=== PATIENT | female | born 1980 | race Caucasian/White ===

== ENCOUNTER → 2016-10-01 | Outpatient (REF) | payer OTHER ==
[~2016-10-01] MED LIST: SOMA350T PO; SUBO8TA PO; XANA1TAB2 PO
== END ==
LOC: M SFHCWAGY 15:17
PROVIDERS: ATTEND Nurse Practitioner Family
DX: Z12.4 Encounter for screening for malignant neoplasm of cervix (principal)

== ENCOUNTER → 2017-01-09 | Outpatient (REF) | payer OTHER | LOC: M SFHCWAGY 16:55 | PROVIDERS: ATTEND Nurse Practitioner Family | DX: Z11.3 Encounter for screening for infections with a predominantly sexual mode of transmission (principal) ==

== ENCOUNTER 2017-01-27 23:30 | Emergency (ER) | payer OTHER ==
[~2017-01-27] VITALS: Ht 165.1 cm; Wt 79.0 kg
[2017-01-28 00:30] LABS: BASO % 0.6 % (0.0-1.0); EOS # 0.2 K/mm3 (0.0-0.50); EOS % 3.9 % (0.0-3.0); LARGE UNSTAINED CELL # 0.1 K/mm3 (0.0-0.4); LARGE UNSTAINED CELL % 1.3 % (0.0-4.0); LYMPH # 2.3 K/mm3 (1.5-4.5); LYMPH % 39.5 % (24.0-44.0); MEAN CORPUSCULAR HEMOGLOBIN 29.7 pg (27.0-33.0); MEAN CORPUSCULAR HGB CONC 33.9 g/dl (32.0-36.5); MEAN CORPUSCULAR VOLUME 87.6 fl (80.0-96.0); MONO # 0.3 K/mm3 (0.0-0.8); MONO % 5.8 % (0.0-5.0); NEUTROPHILS # 2.8 K/mm3 (1.8-7.7); NEUTROPHILS % 48.7 % (36.0-66.0); PLATELET COUNT, AUTOMATED 261 k/mm3 (150-450); RED CELL DISTRIBUTION WIDTH 12.9 % (11.5-14.5); WHITE BLOOD COUNT 5.7 K/mm3 (4.0-10.0)
[2017-01-28 00:39] LABS: ALBUMIN 3.2 GM/DL (3.2-5.2); ALBUMIN/GLOBULIN RATIO 0.97 (1.00-1.93); ALKALINE PHOSPHATASE 77 U/L (45-117); ALT/SGPT 34 U/L (12-78); ANION GAP 4 MEQ/L (8-16); AST/SGOT 20 U/L (15-37); BILIRUBIN,DIRECT < 0.1 MG/DL (0.0-0.2); BILIRUBIN,TOTAL 0.3 MG/DL (0.2-1.0); BLOOD UREA NITROGEN 8 MG/DL (7-18); CALCIUM LEVEL 8.8 MG/DL (8.5-10.1); CARBON DIOXIDE LEVEL 29 MEQ/L (21-32); CHLORIDE LEVEL 108 MEQ/L (98-107); CREATININE FOR GFR 0.59 MG/DL (0.55-1.02); GLOMERULAR FILTRATION RATE > 60.0 (>60); GLUCOSE, FASTING 126 MG/DL (70-105); POTASSIUM SERUM 3.4 MEQ/L (3.5-5.1); SODIUM LEVEL 141 MEQ/L (136-145); TOTAL PROTEIN 6.5 GM/DL (6.4-8.2)
[2017-01-28 02:25] LABS: METHADONE URINE NEGATIVE (NEGATIVE)
[2017-01-28] MEDS ORDERED: PARO30TA70 PO (03:13)
[2017-01-28] MEDS ORDERED: GABA-282 PO (03:13)
[2017-01-28] MEDS ORDERED: ADDE30CA PO (03:13)
[2017-01-28] MEDS ORDERED: [UNRECOGNIZED DRUG - CODE] (03:13)
[2017-01-28 06:15] VITALS: BP 129/86
--- NOTE | 2017-01-28 16:26 | ECGEPIP ---
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
== END 2017-01-28 06:33 | disposition home or self-care (01) ==
LOC: EDBD 23:30 → M ED 23:30
DX: T39.8X2A Poisoning by other nonopioid analgesics and antipyretics, not elsewhere classified, intentional self-harm, initial encounter (principal); T43.622A Poisoning by amphetamines, intentional self-harm, initial encounter; Y92.9 Unspecified place or not applicable; Y93.9 Activity, unspecified; F31.9 Bipolar disorder, unspecified; F90.9 Attention-deficit hyperactivity disorder, unspecified type; F17.200 Nicotine dependence, unspecified, uncomplicated; Z79.899 Other long term (current) drug therapy; Z88.0 Allergy status to penicillin

== ENCOUNTER → 2017-07-22 | Outpatient (CLI) | payer OTHER ==
[~2017-07-22] MED LIST changes: +ADDE30CA3 PO; +BUSP10TA; +BUSP10TA PO; +DULO-34 PO; +GABA-282 PO; +MELO15TA4 PO; +METF-415 PO; +PARO30TA3 PO; +PROM50TA4 PO; +SUBO8MIS; +[UNRECOGNIZED DRUG - CODE]
--- NOTE | 2017-07-22 18:19 | ECGEPIP ---
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 Otherwise normal tracing for age Faster rate, but otherwise unchanged from 01/27/17 Electronically Signed On 07-22-2017 18:19:10 EST by George Francis
[2017-07-22 18:46] LABS: MEAN CORPUSCULAR HEMOGLOBIN 30.3 pg (27.0-33.0); MEAN CORPUSCULAR HGB CONC 32.9 g/dl (32.0-36.5); MEAN CORPUSCULAR VOLUME 92.1 fl (80.0-96.0); PLATELET COUNT, AUTOMATED 326 10^3/uL (150-450); WHITE BLOOD COUNT 8.2 10^3/uL (4.0-10.0)
[2017-07-22 19:06] LABS: ALBUMIN 3.6 GM/DL (3.2-5.2); ALBUMIN/GLOBULIN RATIO 0.95 (1.00-1.93); ALKALINE PHOSPHATASE 117 U/L (45-117); ALT/SGPT 59 U/L (12-78); ANION GAP 5 MEQ/L (8-16); AST/SGOT 34 U/L (7-37); BILIRUBIN,TOTAL 0.3 MG/DL (0.2-1.0); BLOOD UREA NITROGEN 10 MG/DL (7-18); CARBON DIOXIDE LEVEL 29 MEQ/L (21-32); CHLORIDE LEVEL 106 MEQ/L (98-107); CREATININE FOR GFR 0.63 MG/DL (0.55-1.02); GLOMERULAR FILTRATION RATE > 60.0 (>60); GLUCOSE, FASTING 93 MG/DL (70-105); POTASSIUM SERUM 3.9 MEQ/L (3.5-5.1); SODIUM LEVEL 140 MEQ/L (136-145); TOTAL PROTEIN 7.4 GM/DL (6.4-8.2)
== END ==
LOC: M IRPRO 15:59 → M LAB 15:59
PROVIDERS: ATTEND Family Medicine
DX: F11.20 Opioid dependence, uncomplicated (principal); R00.0 Tachycardia, unspecified

== ENCOUNTER 2017-07-27 13:58 | Emergency (ER) | payer OTHER ==
[~2017-07-27] VITALS: Ht 165.1 cm; Wt 80.9 kg
[~2017-07-27 13:58] MED LIST changes: -BUSP10TA; -BUSP10TA PO; -DULO-34 PO; -MELO15TA4 PO; -METF-415 PO; -PROM50TA4 PO; -SUBO8MIS
[2017-07-27] MEDS ORDERED: BUSP10TA (14:06)
[2017-07-27] MEDS ORDERED: PROM50TA4 PO (14:06)
[2017-07-27] MEDS ORDERED: SUBO8MIS (14:06)
[2017-07-27] MEDS ORDERED: MELO15TA4 PO (14:06)
[2017-07-27] MEDS ORDERED: DULO-34 PO ×2 (14:06→18:39)
[2017-07-27] MEDS ORDERED: ONDANSETRON 4 MG ORAL DISINTEGRATING TAB (S0181) PO ONE (17:15)
[2017-07-27] MEDS ORDERED: KETOROLAC 60 MG/2 ML VIAL (J1885) IM ONE (17:15)
[2017-07-27 17:42] LABS: BASO # 0.1 10^3/uL (0.0-0.2); BASO % 0.6 % (0.0-1.0); EOS # 0.2 10^3/uL (0.0-0.50); EOS % 2.8 % (0.0-3.0); IMMATURE GRANULOCYTE % 0.2 % (0-0); LYMPH % 24.3 % (24.0-44.0); MEAN CORPUSCULAR HGB CONC 32.5 g/dl (32.0-36.5); MEAN CORPUSCULAR VOLUME 92.5 fl (80.0-96.0); MONO # 0.7 10^3/uL (0.0-0.8); MONO % 8.1 % (0.0-5.0); NEUTROPHILS # 5.3 10^3/uL (1.8-7.7); PLATELET COUNT, AUTOMATED 263 10^3/uL (150-450); RED CELL DISTRIBUTION WIDTH 12.5 % (11.5-14.5); WHITE BLOOD COUNT 8.3 10^3/uL (4.0-10.0)
[2017-07-27 17:52] LABS: SPECIFIC GRAVITY UR AUTO RFX 1.002 (1.002-1.035); SQUAM EPITHELIAL CELL UR AURFX 0 /HPF (0-6)
--- NOTE | 2017-07-27 18:03 | REP ---
Duplex extremity venous ultrasound: Bilateral lower extremity. History: Bilateral calf pain. Question DVT. Findings: The deep veins are anechoic and fully compressible from the groin to the popliteal fossa in the left and right lower extremity. Color flow imaging is homogeneous. Spectral Doppler interrogation demonstrates intact respiratory variation in flow and normal manual augmentation of flow. There is no evidence of deep vein thrombosis. Impression: Negative bilateral lower extremity duplex venous ultrasound. No evidence of deep vein thrombosis. Signed by Shadi Amor MD 07/27/2017 05:55 P
[2017-07-27 18:19] LABS: ALBUMIN 3.6 GM/DL (3.2-5.2); ALBUMIN/GLOBULIN RATIO 0.95 (1.00-1.93); ALKALINE PHOSPHATASE 106 U/L (45-117); ALT/SGPT 56 U/L (12-78); ANION GAP 8 MEQ/L (8-16); AST/SGOT 43 U/L (7-37); BILIRUBIN,DIRECT 0.1 MG/DL (0.0-0.2); BILIRUBIN,TOTAL 0.3 MG/DL (0.2-1.0); BLOOD UREA NITROGEN 7 MG/DL (7-18); CALCIUM LEVEL 8.8 MG/DL (8.5-10.1); CARBON DIOXIDE LEVEL 32 MEQ/L (21-32); CHLORIDE LEVEL 98 MEQ/L (98-107); CREATININE FOR GFR 0.48 MG/DL (0.55-1.02); GLOMERULAR FILTRATION RATE > 60.0 (>60); GLUCOSE, FASTING 120 MG/DL (70-105); POTASSIUM SERUM 3.7 MEQ/L (3.5-5.1); SODIUM LEVEL 138 MEQ/L (136-145); TOTAL PROTEIN 7.4 GM/DL (6.4-8.2)
[2017-07-27] MEDS ORDERED: BUSP10TA PO (18:39)
[2017-07-27] MEDS ORDERED: METF-415 PO (18:39)
[2017-07-27 18:49] VITALS: BP 116/66
== END 2017-07-27 18:52 | disposition home or self-care (01) ==
LOC: M ED 13:58
DX: E11.9 Type 2 diabetes mellitus without complications (principal); R60.0 Localized edema; R53.83 Other fatigue; F31.9 Bipolar disorder, unspecified; F17.200 Nicotine dependence, unspecified, uncomplicated; Z79.84 Long term (current) use of oral hypoglycemic drugs; Z79.899 Other long term (current) drug therapy; Z88.0 Allergy status to penicillin
CPT/HCPCS: 80048; 80076; 81001; 83036; 85025; 93970; 96372; 99283; J1885

== ENCOUNTER → 2017-07-28 | Outpatient (REF) | payer OTHER ==
[~2017-07-28] MED LIST changes: +BUSP10TA; +BUSP10TA PO; +DULO-34 PO; +MELO15TA4 PO; +METF-415 PO; +PROM50TA4 PO; +SUBO8MIS
== END ==
LOC: M LAB REF 16:59
PROVIDERS: ATTEND Physician Assistant
DX: R30.0 Dysuria (principal)

== ENCOUNTER → 2017-08-13 | Outpatient (REF) | payer OTHER | LOC: M LAB REF 08:29 | DX: R50.9 Fever, unspecified (principal); J02.9 Acute pharyngitis, unspecified | CPT/HCPCS: 87070 ==

== ENCOUNTER → 2018-03-29 | Outpatient (CLI) | payer OTHER, MEDICAID, SELFPAY ==
[2018-03-29 13:10] LABS: HEMATOCRIT 37.8 % (36.0-47.0); HEMOGLOBIN 12.6 g/dl (12.0-15.5); MEAN CORPUSCULAR HEMOGLOBIN 28.9 pg (27.0-33.0); MEAN CORPUSCULAR HGB CONC 33.3 g/dl (32.0-36.5); MEAN CORPUSCULAR VOLUME 86.7 fl (80.0-96.0); PLATELET COUNT, AUTOMATED 251 10^3/uL (150-450); RED BLOOD COUNT 4.36 10^6/uL (4.00-5.40); RED CELL DISTRIBUTION WIDTH 12.7 % (11.5-14.5); WHITE BLOOD COUNT 7.1 10^3/uL (4.0-10.0)
[2018-03-29 13:53] LABS: HEPATITIS B SURFACE ANTIGEN NEGATIVE (NEGATIVE)
[2018-03-29 14:06] LABS: ALBUMIN 3.1 GM/DL (3.2-5.2); ALBUMIN/GLOBULIN RATIO 0.89 (1.00-1.93); ALKALINE PHOSPHATASE 84 U/L (45-117); ALT/SGPT 25 U/L (12-78); ANION GAP 8 MEQ/L (8-16); AST/SGOT 17 U/L (7-37); BILIRUBIN,TOTAL 0.2 MG/DL (0.2-1.0); BLOOD UREA NITROGEN 5 MG/DL (7-18); CALCIUM LEVEL 8.7 MG/DL (8.5-10.1); CARBON DIOXIDE LEVEL 25 MEQ/L (21-32); CHLORIDE LEVEL 108 MEQ/L (98-107); CREATININE FOR GFR 0.49 MG/DL (0.55-1.30); GLOMERULAR FILTRATION RATE > 60.0 (>60); GLUCOSE, FASTING 111 MG/DL (70-100); HCG, SERUM QUANTITATIVE < 1.0 MIU/ML; POTASSIUM SERUM 3.9 MEQ/L (3.5-5.1); SODIUM LEVEL 141 MEQ/L (136-145); TOTAL PROTEIN 6.6 GM/DL (6.4-8.2)
[2018-03-29 14:22] LABS: HIV 1&2 SCREEN CENTAUR NEGATIVE (NEGATIVE)
[2018-03-29 14:27] LABS: HEPATITIS C VIRUS ABY INDEX > 11.0 INDEX (<0.8)
[2018-03-29 14:41] LABS: CHLAMYDIA DNA AMPLIFICATION NEGATIVE (NEGATIVE); GC DNA AMPLIFICATION NEGATIVE (NEGATIVE)
[2018-04-01 08:06] LABS: HCV RNA NAA QUALITATIVE Positive (Negative)
== END ==
LOC: M LAB 12:38
DX: F11.20 Opioid dependence, uncomplicated (principal)
CPT/HCPCS: 93005

== ENCOUNTER → 2018-03-30 | Outpatient (REF) | payer OTHER ==
[2018-03-30 19:19] LABS: ALBUMIN 3.4 GM/DL (3.2-5.2); ALBUMIN/GLOBULIN RATIO 0.89 (1.00-1.93); ALKALINE PHOSPHATASE 91 U/L (45-117); ALT/SGPT 27 U/L (12-78); ANION GAP 8 MEQ/L (8-16); AST/SGOT 25 U/L (7-37); BILIRUBIN,TOTAL 0.3 MG/DL (0.2-1.0); BLOOD UREA NITROGEN 5 MG/DL (7-18); CALCIUM LEVEL 8.8 MG/DL (8.5-10.1); CARBON DIOXIDE LEVEL 23 MEQ/L (21-32); CHLORIDE LEVEL 111 MEQ/L (98-107); CREATININE FOR GFR 0.62 MG/DL (0.55-1.30); ESTIMATED AVERAGE GLUCOSE 120 MG/DL (60-110); FREE T4 1.29 NG/DL (0.76-1.46); GLOMERULAR FILTRATION RATE > 60.0 (>60); GLUCOSE, FASTING 110 MG/DL (70-100); HEMOGLOBIN A1c 5.8 %; SODIUM LEVEL 142 MEQ/L (136-145); TOTAL PROTEIN 7.2 GM/DL (6.4-8.2)
[2018-03-30 19:20] LABS: BASO # 0.1 10^3/uL (0.0-0.2); BASO % 0.8 % (0.0-1.0); EOS # 0.1 10^3/uL (0.0-0.50); EOS % 1.7 % (0.0-3.0); HEMATOCRIT 40.2 % (36.0-47.0); HEMOGLOBIN 13.7 g/dl (12.0-15.5); IMMATURE GRANULOCYTE % 0.3 % (0-3.0); LYMPH # 1.8 10^3/uL (1.5-4.5); LYMPH % 24.3 % (24.0-44.0); MEAN CORPUSCULAR HEMOGLOBIN 28.8 pg (27.0-33.0); MEAN CORPUSCULAR HGB CONC 34.1 g/dl (32.0-36.5); MEAN CORPUSCULAR VOLUME 84.5 fl (80.0-96.0); MONO # 0.6 10^3/uL (0.0-0.8); MONO % 8.8 % (0.0-5.0); NEUTROPHILS # 4.6 10^3/uL (1.8-7.7); NEUTROPHILS % 64.1 % (36.0-66.0); PLATELET COUNT, AUTOMATED 285 10^3/uL (150-450); RED BLOOD COUNT 4.76 10^6/uL (4.00-5.40); RED CELL DISTRIBUTION WIDTH 12.7 % (11.5-14.5); WHITE BLOOD COUNT 7.2 10^3/uL (4.0-10.0)
== END ==
LOC: M LAB REF 17:39
DX: R53.83 Other fatigue (principal); R63.5 Abnormal weight gain

== ENCOUNTER → 2018-06-16 | Outpatient (REF) | payer OTHER ==
[2018-06-16 18:56] LABS: ESTIMATED AVERAGE GLUCOSE 126 MG/DL (60-110)
[2018-06-21 14:09] LABS: HEPATITIS C QUANTITATION 3181010 IU/mL (.)
== END ==
LOC: M LAB REF 18:31
DX: E11.65 Type 2 diabetes mellitus with hyperglycemia (principal); R63.5 Abnormal weight gain; F11.21 Opioid dependence, in remission
CPT/HCPCS: 84443

== ENCOUNTER → 2019-03-01 | Outpatient (REF) | payer OTHER ==
[~2019-03-01] MED LIST changes: -GABA-282 PO; +GABA-843 PO; +MELO15TA28 PO; -MELO15TA4 PO
[2019-03-01 15:26] LABS: BASO # 0.1 10^3/uL (0.0-0.2); BASO % 0.8 % (0.0-1.0); EOS # 0.2 10^3/uL (0.0-0.50); EOS % 3.8 % (0.0-3.0); HEMATOCRIT 42.7 % (36.0-47.0); LYMPH % 33.4 % (24.0-44.0); MEAN CORPUSCULAR HEMOGLOBIN 28.6 pg (27.0-33.0); MEAN CORPUSCULAR HGB CONC 32.8 g/dl (32.0-36.5); MEAN CORPUSCULAR VOLUME 87.1 fl (80.0-96.0); MONO # 0.5 10^3/uL (0.0-0.8); NEUTROPHILS # 3.3 10^3/uL (1.8-7.7); NEUTROPHILS % 53.8 % (36.0-66.0); PLATELET COUNT, AUTOMATED 281 10^3/uL (150-450); WHITE BLOOD COUNT 6.1 10^3/uL (4.0-10.0)
[2019-03-01 15:33] LABS: ALBUMIN 3.6 GM/DL (3.2-5.2); ALT/SGPT 58 U/L (12-78); BILIRUBIN,TOTAL 0.2 MG/DL (0.2-1.0); BLOOD UREA NITROGEN 4 MG/DL (7-18); CALCIUM LEVEL 9.2 MG/DL (8.5-10.1); CARBON DIOXIDE LEVEL 24 MEQ/L (21-32); CHLORIDE LEVEL 110 MEQ/L (98-107); CREATININE FOR GFR 0.62 MG/DL (0.55-1.30); GLOMERULAR FILTRATION RATE > 60.0 (>58); GLUCOSE, FASTING 129 MG/DL (70-100); POTASSIUM SERUM 3.9 MEQ/L (3.5-5.1); SODIUM LEVEL 141 MEQ/L (136-145); TOTAL PROTEIN 7.2 GM/DL (6.4-8.2)
[2019-03-01 15:45] LABS: INR 1.07; PROTHROMBIN TIME 13.6 SECONDS (11.8-14.0)
[2019-03-02 10:42] LABS: HEPATITIS B SURFACE ANTIBODY NEGATIVE (POSITIVE)
[2019-03-02 10:53] LABS: HEPATITIS B SURFACE ANTIGEN NEGATIVE (NEGATIVE)
[2019-03-02 11:21] LABS: HIV 1&2 SCREEN CENTAUR NEGATIVE (NEGATIVE)
[2019-03-04 14:07] LABS: HEPATITIS A IgG TOTAL Positive (Negative); HEPATITIS B CORE ANTIBODY IGG Negative (Negative); HEPATITIS C QUANTITATION 4263250 IU/mL (.)
[2019-03-07 14:07] LABS: HEPATITIS C VIRUS GENOTYPE 3 (.)
== END ==
LOC: M LAB REF 14:40
PROVIDERS: ATTEND Nurse Practitioner Adult Health
DX: B18.2 Chronic viral hepatitis C (principal)

== ENCOUNTER → 2019-07-08 | Outpatient (REF) | payer OTHER ==
[2019-07-08 17:16] LABS: INFLUENZA A AMPLIFICATION NEGATIVE (NEGATIVE); INFLUENZA B AMPLIFICATION NEGATIVE (NEGATIVE)
== END ==
LOC: M LAB REF 16:39
PROVIDERS: ATTEND Physician Assistant
DX: R05 Cough (principal)

== ENCOUNTER → 2019-10-27 | Outpatient (REF) | payer OTHER ==
[2019-10-27 17:40] LABS: INFLUENZA A AMPLIFICATION NEGATIVE (NEGATIVE); INFLUENZA B AMPLIFICATION NEGATIVE (NEGATIVE)
== END ==
LOC: M LAB REF 16:21
PROVIDERS: ATTEND Physician Assistant
DX: J11.1 Influenza due to unidentified influenza virus with other respiratory manifestations (principal)

== ENCOUNTER → 2019-11-04 | Outpatient (CLI) | payer OTHER | LOC: M LABSMTC 10:20 | PROVIDERS: ATTEND Family Medicine | DX: Z11.59 Encounter for screening for other viral diseases (principal); Z20.828 Contact with and (suspected) exposure to other viral communicable diseases | CPT/HCPCS: 87486; 87581; 87633; 87798; U0002 ==

== ENCOUNTER 2019-12-09 21:16 | Emergency (ER) | payer OTHER ==
[~2019-12-09] VITALS: Ht 165.1 cm; Wt 81.8 kg
[2019-12-09 21:16] VITALS: BP 122/71
[2019-12-09 21:59] LABS: BASO # 0.1 10^3/uL (0.0-0.2); BASO % 0.6 % (0.0-1.0); EOS # 0.2 10^3/uL (0.0-0.5); EOS % 2.5 % (0.0-3.0); HEMATOCRIT 36.3 % (36.0-47.0); LYMPH # 1.8 10^3/uL (1.5-5.0); LYMPH % 20.8 % (24.0-44.0); MEAN CORPUSCULAR HGB CONC 33.1 g/dl (32.0-36.5); MEAN CORPUSCULAR VOLUME 84.8 fl (80.0-96.0); MONO # 0.6 10^3/uL (0.0-0.8); MONO % 6.5 % (0.0-5.0); NEUTROPHILS # 6.1 10^3/uL (1.5-8.5); NEUTROPHILS % 69.4 % (36.0-66.0); PLATELET COUNT, AUTOMATED 250 10^3/uL (150-450); RED BLOOD COUNT 4.28 10^6/uL (4.00-5.40); WHITE BLOOD COUNT 8.7 10^3/uL (4.0-10.0)
[2019-12-09] MEDS ORDERED: BACTRIM 160MG/800MG DS TAB PO ONE (22:00)
[2019-12-09] MEDS ORDERED: CLINDAMYCIN 150MG CAPSULE PO ONE (22:00)
[2019-12-09] MEDS ORDERED: CLEO150C PO (22:07)
[2019-12-09] MEDS ORDERED: BACT800T5 PO (22:07)
[2019-12-09] MEDS ORDERED: CLEO300C2 PO (22:07)
[2019-12-09 22:18] LABS: ERYTHROCYTE SEDIMENTATION RATE 46 mm/hr (0-20)
--- NOTE | 2019-12-10 10:31 | REP ---
RIGHT FOURTH DIGIT: Four views of the right 4th digit are performed and demonstrate no fracture, dislocation or intrinsic bone disease. IMPRESSION: No fracture or dislocation. Electronically Signed by Barry Arenas MD 12/10/2019 10:53 A
== END 2019-12-09 22:51 | disposition home or self-care (01) ==
LOC: M ED 21:16
DX: L03.113 Cellulitis of right upper limb (principal); S61.451A Open bite of right hand, initial encounter; W54.0XXA Bitten by dog, initial encounter; Y92.89 Other specified places as the place of occurrence of the external cause; E11.9 Type 2 diabetes mellitus without complications; F17.200 Nicotine dependence, unspecified, uncomplicated; Z88.0 Allergy status to penicillin; Z79.899 Other long term (current) drug therapy; Z79.84 Long term (current) use of oral hypoglycemic drugs

== ENCOUNTER → 2019-12-28 | Outpatient (CLI) | payer OTHER ==
[~2019-12-28] MED LIST changes: +BACT800T5 PO; +CLEO150C PO; +CLEO300C2 PO
== END ==
LOC: M LABSMTC 12:26
PROVIDERS: ATTEND Family Medicine
DX: Z20.828 Contact with and (suspected) exposure to other viral communicable diseases (principal)
CPT/HCPCS: C8903; U0003

== ENCOUNTER 2020-07-02 16:53 | Emergency (ER) | payer MEDICAID, OTHER ==
[~2020-07-02] VITALS: Ht 167.6 cm; Wt 91.6 kg
[2020-07-02] MEDS ORDERED: IBUP-1114 PO (17:01)
[2020-07-02 20:13] LABS: BASO # 0.1 10^3/uL (0.0-0.2); BASO % 0.5 % (0.0-1.0); EOS # 0.2 10^3/uL (0.0-0.5); EOS % 1.7 % (0.0-3.0); HEMATOCRIT 36.2 % (36.0-47.0); HEMOGLOBIN 11.3 g/dl (12.0-15.5); LYMPH # 2.6 10^3/uL (1.5-5.0); LYMPH % 27.5 % (24.0-44.0); MEAN CORPUSCULAR HEMOGLOBIN 27.5 pg (27.0-33.0); MEAN CORPUSCULAR HGB CONC 31.2 g/dl (32.0-36.5); MEAN CORPUSCULAR VOLUME 88.1 fl (80.0-96.0); MONO # 0.9 10^3/uL (0.0-0.8); MONO % 9.3 % (0.0-5.0); NEUTROPHILS # 5.8 10^3/uL (1.5-8.5); NEUTROPHILS % 60.5 % (36.0-66.0); PLATELET COUNT, AUTOMATED 294 10^3/uL (150-450); RED BLOOD COUNT 4.11 10^6/uL (4.00-5.40); WHITE BLOOD COUNT 9.5 10^3/uL (4.0-10.0)
[2020-07-02 20:29] LABS: HCG, SERUM QUALITATIVE NEGATIVE (NEGATIVE)
[2020-07-02 20:32] LABS: ALBUMIN 3.6 GM/DL (3.2-5.2); ALT/SGPT 22 U/L (12-78); BILIRUBIN,DIRECT < 0.1 MG/DL (0.0-0.2); BILIRUBIN,TOTAL 0.3 MG/DL (0.2-1.0); BLOOD UREA NITROGEN 9 MG/DL (7-18); CALCIUM LEVEL 8.9 MG/DL (8.5-10.1); CARBON DIOXIDE LEVEL 32 MEQ/L (21-32); CHLORIDE LEVEL 104 MEQ/L (98-107); CK-MB VALUE MASS 6.2 NG/ML (<3.6); CPK CREATINE PHOSPHOKINASE 194 U/L (26-192); CREATININE FOR GFR 0.65 MG/DL (0.55-1.30); GLOMERULAR FILTRATION RATE > 60.0 (>58); GLUCOSE, FASTING 107 MG/DL (70-100); POTASSIUM SERUM 3.5 MEQ/L (3.5-5.1); SODIUM LEVEL 139 MEQ/L (136-145); TOTAL PROTEIN 7.1 GM/DL (6.4-8.2); TROPONIN I < 0.02 NG/ML (< 0.10)
--- NOTE | 2020-07-02 21:17 | REPVR ---
PROCEDURE INFORMATION: Exam: US Duplex Lower Extremity Veins, Bilateral Exam date and time: 07/02/2020 8:52 PM Age: 39 years old Clinical indication: Edema, localized; Lower extremity, bilateral; Additional info: B/l leg swelling TECHNIQUE: Imaging protocol: Real-time duplex ultrasound of the extremities with 2-D rodriguez scale, color Doppler flow and spectral waveform analysis with image documentation. Complete exam focused on the bilateral lower extremity veins. COMPARISON: US Duplex, Ext LOWER veins, bilat 07/27/2017 5:34 PM FINDINGS: Right deep veins: Unremarkable. The common femoral, femoral, proximal profunda femoral and popliteal veins are patent without thrombus. Normal Doppler waveforms. Normal compressibility and/or augmentation response. Right superficial veins: Saphenofemoral junction is patent without thrombus. Left deep veins: Unremarkable. The common femoral, femoral, proximal profunda femoral and popliteal veins are patent without thrombus. Normal Doppler waveforms. Normal compressibility and/or augmentation response. Left superficial veins: Saphenofemoral junction is patent without thrombus. Soft tissues: Unremarkable. IMPRESSION: No evidence of deep vein thrombosis. Electronically signed by: Rubens Stapleton On 07/02/2020 21:17:08 PM
--- NOTE | 2020-07-02 22:02 | REPVR ---
PROCEDURE INFORMATION: Exam: XR Chest, 1 View Exam date and time: 07/02/2020 9:30 PM Age: 39 years old Clinical indication: Palpitations, edema TECHNIQUE: Imaging protocol: XR of the chest Views: 1 view. COMPARISON: No relevant prior studies available. FINDINGS: Lungs: Unremarkable. No consolidation. No pulmonary edema. Pleural space: Unremarkable. No pleural effusion or pneumothorax is identified. Heart/Mediastinum: Unremarkable. No cardiomegaly. Bones/joints: Unremarkable. IMPRESSION: No acute findings. Electronically signed by: Milton Montes On 07/02/2020 22:02:29 PM
[2020-07-02] MEDS ORDERED: LASI20TA3 PO (22:18)
[2020-07-02] MEDS ORDERED: FUROSEMIDE 20 MG TAB PO ONE (22:30)
[2020-07-02 22:45] VITALS: BP 92/56
--- NOTE | 2020-07-03 00:03 | ECGEPIP ---
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
== END 2020-07-02 23:01 | disposition home or self-care (01) ==
LOC: M ED 16:53
DX: R22.43 Localized swelling, mass and lump, lower limb, bilateral (principal); E11.40 Type 2 diabetes mellitus with diabetic neuropathy, unspecified; F17.200 Nicotine dependence, unspecified, uncomplicated; Z88.0 Allergy status to penicillin; Z79.84 Long term (current) use of oral hypoglycemic drugs; Z79.899 Other long term (current) drug therapy

== ENCOUNTER → 2020-08-13 | Outpatient (REF) | payer MEDICAID, OTHER ==
[~2020-08-13] MED LIST changes: +IBUP-1114 PO; +LASI20TA3 PO
[2020-08-13 13:27] LABS: HEMOGLOBIN 10.8 g/dl (12.0-15.5); MEAN CORPUSCULAR HEMOGLOBIN 26.2 pg (27.0-33.0); MEAN CORPUSCULAR HGB CONC 30.9 g/dl (32.0-36.5); PLATELET COUNT, AUTOMATED 269 10^3/uL (150-450); RED BLOOD COUNT 4.12 10^6/uL (4.00-5.40); WHITE BLOOD COUNT 6.2 10^3/uL (4.0-10.0)
[2020-08-13 13:50] LABS: HEMOGLOBIN A1c 5.7 %
[2020-08-13 13:59] LABS: ALBUMIN 3.2 GM/DL (3.2-5.2); ALT/SGPT 13 U/L (12-78); BILIRUBIN,TOTAL 0.3 MG/DL (0.2-1.0); BLOOD UREA NITROGEN 6 MG/DL (7-18); CALCIUM LEVEL 8.7 MG/DL (8.5-10.1); CARBON DIOXIDE LEVEL 29 MEQ/L (21-32); CHLORIDE LEVEL 108 MEQ/L (98-107); CREATININE FOR GFR 0.63 MG/DL (0.55-1.30); FERRITIN 9 NG/ML (8-252); GLOMERULAR FILTRATION RATE > 60.0 (>58); GLUCOSE, FASTING 134 MG/DL (70-100); IRON (FE) 51 UG/DL (50-170); NT-PRO BNP 279 PG/ML (<125); PERCENT SATURATION 11.7 % (13.2-45.0); POTASSIUM SERUM 3.9 MEQ/L (3.5-5.1); SODIUM LEVEL 142 MEQ/L (136-145); TOTAL IRON BINDING CAPACITY 435 UG/DL (250-450); TOTAL PROTEIN 6.4 GM/DL (6.4-8.2)
[2020-08-13 14:07] LABS: MALB URINE SIEMENS 6.8 MG/L; MAU/CREAT RATIO 4.9 MCG/MG (0.0-30.0)
== END ==
LOC: M SFHCPLAZ 10:18
PROVIDERS: ATTEND Nurse Practitioner Adult Health
DX: E11.9 Type 2 diabetes mellitus without complications (principal); T14.8XXA Other injury of unspecified body region, initial encounter; R60.0 Localized edema

== ENCOUNTER → 2021-08-14 | Outpatient (REF) | payer OTHER ==
[~2021-08-14] MED LIST changes: +GABA-282 PO; -GABA-843 PO
== END ==
LOC: M LAB REF 20:52
PROVIDERS: ATTEND Physician Assistant
DX: R50.9 Fever, unspecified (principal); R53.83 Other fatigue

== ENCOUNTER 2021-09-20 16:34 | Emergency (ER) | payer OTHER ==
[~2021-09-20] VITALS: Ht 165.1 cm; Wt 72.7 kg
[2021-09-20 16:56] VITALS: BP 117/77
[2021-09-20] MEDS ORDERED: SUBO8MIS SL (17:01)
[2021-09-20] MEDS ORDERED: GABA-283 PO (17:01)
[2021-09-20] MEDS ORDERED: BUSP10TA PO (17:01)
[2021-09-20] MEDS ORDERED: AMPH1CAP16 PO (17:01)
[2021-09-20] MEDS ORDERED: TRAZ1TAB14 PO (17:01)
[2021-09-20] MEDS ORDERED: PARO20TA3 PO (17:01)
[2021-09-20] MEDS ORDERED: DERMABOND TOPICAL SKIN ADHESIVE TOP ONE (17:40)
== END 2021-09-20 20:16 | disposition home or self-care (01) ==
LOC: EDBD 16:34 → EDSEX 16:34 → M ED 16:34
DX: S61.212A Laceration without foreign body of right middle finger without damage to nail, initial encounter (principal); S60.221A Contusion of right hand, initial encounter; E11.9 Type 2 diabetes mellitus without complications; F41.9 Anxiety disorder, unspecified; F90.1 Attention-deficit hyperactivity disorder, predominantly hyperactive type; F17.200 Nicotine dependence, unspecified, uncomplicated; Z88.0 Allergy status to penicillin; W10.9XXA Fall (on) (from) unspecified stairs and steps, initial encounter; Z79.4 Long term (current) use of insulin; Y92.009 Unspecified place in unspecified non-institutional (private) residence as the place of occurrence of the external cause; Y93.9 Activity, unspecified; Y99.9 Unspecified external cause status

== ENCOUNTER 2021-11-03 17:11 | Emergency (ER) | payer OTHER ==
[~2021-11-03] VITALS: Ht 165.1 cm; Wt 74.5 kg
[~2021-11-03 17:11] MED LIST changes: +AMPH1CAP16 PO; +GABA-283 PO; +PARO20TA3 PO; +SUBO8MIS SL; +TRAZ1TAB14 PO
[2021-11-03] MEDS ORDERED: METF500T13 PO (18:39)
[2021-11-03 18:41] LABS: HEMATOCRIT 37.1 % (36.0-47.0); HEMOGLOBIN 11.7 g/dl (12.0-15.5); MEAN CORPUSCULAR HEMOGLOBIN 26.2 pg (27.0-33.0); MEAN CORPUSCULAR HGB CONC 31.5 g/dl (32.0-36.5); PLATELET COUNT, AUTOMATED 317 10^3/uL (150-450); RED BLOOD COUNT 4.47 10^6/uL (4.00-5.40); WHITE BLOOD COUNT 7.4 10^3/uL (4.0-10.0)
[2021-11-03] MEDS ORDERED: HOME MED LIST COMPLETE! XX SCH (18:55)
[2021-11-03 19:06] LABS: ACETAMINOPHEN LEVEL < 2.0 UG/ML (10.0-30.0); ALBUMIN 3.7 GM/DL (3.2-5.2); ALT/SGPT 25 U/L (12-78); AMPHETAMINES LEVEL URINE POSITIVE (NEGATIVE); BARBITURATES URINE NEGATIVE (NEGATIVE); BENZODIAZEPINES URINE POSITIVE (NEGATIVE); BILIRUBIN,DIRECT < 0.1 MG/DL (0.0-0.2); BILIRUBIN,TOTAL 0.2 MG/DL (0.2-1.0); BLOOD UREA NITROGEN 11 MG/DL (7-18); CALCIUM LEVEL 9.2 MG/DL (8.5-10.1); CANNABINOIDS URINE POSITIVE (NEGATIVE); CARBON DIOXIDE LEVEL 27 MEQ/L (21-32); CHLORIDE LEVEL 107 MEQ/L (98-107); COCAINE METABOLITE URINE NEGATIVE (NEGATIVE); CREATININE FOR GFR 0.55 MG/DL (0.55-1.30); ETHYL ALCOHOL (ETHANOL) < 0.003 % (0.000-0.010); GLOMERULAR FILTRATION RATE > 60.0 (>58); GLUCOSE, FASTING 107 MG/DL (70-100); METHADONE URINE NEGATIVE (NEGATIVE); OPIATES URINE NEGATIVE (NEGATIVE); PHENCYCLIDINE URINE NEGATIVE (NEGATIVE); POTASSIUM SERUM 3.6 MEQ/L (3.5-5.1); SALICYLATE LEVEL 3.9 MG/DL (5.0-30.0); SODIUM LEVEL 140 MEQ/L (136-145); TOTAL PROTEIN 7.4 GM/DL (6.4-8.2)
[2021-11-03 19:15] LABS: RSV AMPLIFICATION NEGATIVE (NEGATIVE)
[2021-11-03] MEDS ORDERED: metFORMIN (GLUCOPHAGE) 500MG TAB PO ONE (21:00)
[2021-11-03] MEDS ORDERED: BUPRENORPHINE/NALOXONE 8-2MG SUBLINGUAL TABLET(SUBOXONE) SL ONE (21:00)
[2021-11-03] MEDS ORDERED: traZODone 50 MG TAB PO ONE (21:00)
[2021-11-03] MEDS ORDERED: busPIRone 10 MG TAB PO ONE (21:00)
[2021-11-03] MEDS ORDERED: GABAPENTIN 400MG CAP PO ONE (21:00)
[2021-11-03 22:32] VITALS: BP 135/60
== END 2021-11-03 23:04 | disposition home or self-care (01) ==
LOC: M ED 17:11
DX: Z02.83 Encounter for blood-alcohol and blood-drug test (principal); E11.9 Type 2 diabetes mellitus without complications; F41.8 Other specified anxiety disorders; F90.9 Attention-deficit hyperactivity disorder, unspecified type; F17.200 Nicotine dependence, unspecified, uncomplicated; K21.9 Gastro-esophageal reflux disease without esophagitis; F31.9 Bipolar disorder, unspecified; Z79.4 Long term (current) use of insulin; Z79.899 Other long term (current) drug therapy; Z88.0 Allergy status to penicillin

== ENCOUNTER 2021-12-16 15:33 | Inpatient (IN) | payer OTHER ==
[~2021-12-16] VITALS: Ht 165.1 cm; Wt 80.5 kg
[2021-12-16] VITALS (7 sets, daily range): BP systolic 105–125; BP diastolic 65–80
[~2021-12-16 15:33] MED LIST changes: +METF500T13 PO
[2021-12-16] MEDS ORDERED: PROPOFOL 1,000 MG/100 ML VIAL As Ordered ONE (15:56)
[2021-12-16] MEDS ORDERED: ETOMIDATE INJ 20MG/10ML VIAL IV ONE (16:00)
[2021-12-16] MEDS ORDERED: ROCURONIUM BROMIDE 50 MG/5 ML VIAL IV ONE (16:00)
[2021-12-16] MEDS ORDERED: MIDAZOLAM 5MG/ML 1ML VIAL (J2250 PER 1MG) IV PRN (16:00)
[2021-12-16] MEDS ORDERED: SUCCINYLCHOLINE INJ 200 MG/10 ML VIAL (J0330) IV ONE (16:00)
[2021-12-16] MEDS ORDERED: propofoL 1,000 MG in IV 1 EA IV SCH (16:00)
[2021-12-16 16:19] LABS: HEMATOCRIT 36.5 % (36.0-47.0); HEMOGLOBIN 11.7 g/dl (12.0-15.5); MEAN CORPUSCULAR HEMOGLOBIN 26.8 pg (27.0-33.0); MEAN CORPUSCULAR HGB CONC 32.1 g/dl (32.0-36.5); MEAN CORPUSCULAR VOLUME 83.5 fl (80.0-96.0); PLATELET COUNT, AUTOMATED 260 10^3/uL (150-450); RED BLOOD COUNT 4.37 10^6/uL (4.00-5.40); WHITE BLOOD COUNT 7.4 10^3/uL (4.0-10.0)
[2021-12-16] MEDS ORDERED: ROCURONIUM BROMIDE 50 MG/5 ML VIAL IV PRN (16:25)
[2021-12-16 16:33] LABS: HCG, SERUM QUALITATIVE NEGATIVE (NEGATIVE)
[2021-12-16 16:37] LABS: ABG BASE EXCESS -5.4 (-2.0-2.0); ABG HCO3 20.6 MEQ/L (22.0-26.0); ABG O2 SATURATION 97.3 % (95.0-99.0); ABG PARTIAL PRESSURE CO2 41.7 mmHg (35.0-45.0); ABG PARTIAL PRESSURE O2 104.4 mmHg (75.0-100.0); ABG STANDARD HCO3 20.1 MEQ/L (22.0-26.0); ABG TOTAL CO2 21.9 MEQ/L (22.0-29.0); ABG pH (ARTERIAL) 7.311 UNITS (7.350-7.450)
[2021-12-16 16:39] LABS: ACETAMINOPHEN LEVEL < 2.0 UG/ML (10.0-30.0); ALBUMIN 3.5 GM/DL (3.2-5.2); ALT/SGPT 18 U/L (12-78); BILIRUBIN,DIRECT 0.1 MG/DL (0.0-0.2); BILIRUBIN,TOTAL 0.2 MG/DL (0.2-1.0); BLOOD UREA NITROGEN 6 MG/DL (7-18); CARBON DIOXIDE LEVEL 27 MEQ/L (21-32); CHLORIDE LEVEL 108 MEQ/L (98-107); CREATININE FOR GFR 0.62 MG/DL (0.55-1.30); ETHYL ALCOHOL (ETHANOL) 0.042 % (0.000-0.010); GLOMERULAR FILTRATION RATE > 60.0 (>58); GLUCOSE, FASTING 120 MG/DL (70-100); POTASSIUM SERUM 3.3 MEQ/L (3.5-5.1); SALICYLATE LEVEL 3.7 MG/DL (5.0-30.0); SODIUM LEVEL 140 MEQ/L (136-145); THYROID STIMULATING HORMONE 0.829 uIU/ML (0.358-3.740); TOTAL PROTEIN 7.2 GM/DL (6.4-8.2)
[2021-12-16] MEDS ORDERED: REFRIGERATOR IV KEYS XX PRN (16:40)
[2021-12-16] MEDS: propofoL 1,000 MG in IV 1 EA IV SCH ×2 (16:40→22:29)
[2021-12-16 16:41] LABS: RSV AMPLIFICATION NEGATIVE (NEGATIVE)
[2021-12-16 17:05] LABS: AMPHETAMINES LEVEL URINE POSITIVE (NEGATIVE); BARBITURATES URINE NEGATIVE (NEGATIVE); BENZODIAZEPINES URINE NEGATIVE (NEGATIVE); CANNABINOIDS URINE POSITIVE (NEGATIVE); COCAINE METABOLITE URINE NEGATIVE (NEGATIVE); METHADONE URINE NEGATIVE (NEGATIVE); OPIATES URINE NEGATIVE (NEGATIVE); PHENCYCLIDINE URINE NEGATIVE (NEGATIVE)
[2021-12-16] MEDS ORDERED: CHARCOAL ACTIVATED LIQUID 25 GM/120 ML BTL PO ONE (17:05)
[2021-12-16] MEDS ORDERED: NICOTINE 14 MG/24 HR TRANSDERMAL TD ONE (17:15)
[2021-12-16] MEDS ORDERED: POTASSIUM CHLORIDE 10% LIQ 20 MEQ/15 ML UDC NG ONE (17:15)
[2021-12-16] MEDS ORDERED: DIAZ2TAB PO (17:26)
[2021-12-16] MEDS ORDERED: BUSP15TA47 PO (17:26)
[2021-12-16] MEDS ORDERED: TRAZ-257 PO (17:26)
[2021-12-16] MEDS ORDERED: PRAZ1CAP PO (17:26)
[2021-12-16] MEDS ORDERED: COMMENTS (17:27)
[2021-12-16] MEDS ORDERED: HOME MED LIST COMPLETE! XX SCH (17:30)
[2021-12-16 17:40] LABS: MAGNESIUM LEVEL 2.3 MG/DL (1.8-2.4); PHOSPHORUS LEVEL 3.2 MG/DL (2.5-4.9)
[2021-12-16] MEDS: MIDAZOLAM HCL 100 MG in D5W 80 ML IV SCH (18:27)
[2021-12-16] MEDS: LR 1,000 ML IV SCH (18:27)
[2021-12-16] MEDS: CHLORHEXIDINE GLUCONATE 0.12 % 15ML UDC (PERIDEX ORAL RINSE) MT SCH (22:28)
[2021-12-16] MEDS: MIDAZOLAM INJ 2MG/2ML VIAL (J2250 PER 1MG) IV PRN (22:37)
[2021-12-17] VITALS (23 sets, daily range): BP systolic 106–129; BP diastolic 55–79
[2021-12-17] MEDS: MIDAZOLAM INJ 2MG/2ML VIAL (J2250 PER 1MG) IV PRN ×6 (02:15→13:03)
[2021-12-17 06:57] LABS: HEMATOCRIT 37.5 % (36.0-47.0); HEMOGLOBIN 11.8 g/dl (12.0-15.5); MEAN CORPUSCULAR HEMOGLOBIN 27.1 pg (27.0-33.0); MEAN CORPUSCULAR HGB CONC 31.5 g/dl (32.0-36.5); PLATELET COUNT, AUTOMATED 225 10^3/uL (150-450); RED BLOOD COUNT 4.36 10^6/uL (4.00-5.40); WHITE BLOOD COUNT 9.2 10^3/uL (4.0-10.0)
[2021-12-17] MEDS: LR 1,000 ML IV SCH ×2 (07:16→19:55)
[2021-12-17 07:27] LABS: ALBUMIN 3.2 GM/DL (3.2-5.2); ALT/SGPT 16 U/L (12-78); BILIRUBIN,TOTAL 0.3 MG/DL (0.2-1.0); BLOOD UREA NITROGEN 5 MG/DL (7-18); CALCIUM LEVEL 8.7 MG/DL (8.5-10.1); CARBON DIOXIDE LEVEL 27 MEQ/L (21-32); CHLORIDE LEVEL 112 MEQ/L (98-107); CREATININE FOR GFR 0.56 MG/DL (0.55-1.30); GLOMERULAR FILTRATION RATE > 60.0 (>58); GLUCOSE, FASTING 87 MG/DL (70-100); POTASSIUM SERUM 3.9 MEQ/L (3.5-5.1); SODIUM LEVEL 144 MEQ/L (136-145); TOTAL PROTEIN 6.4 GM/DL (6.4-8.2)
[2021-12-17] MEDS: CHLORHEXIDINE GLUCONATE 0.12 % 15ML UDC (PERIDEX ORAL RINSE) MT SCH ×2 (09:29→20:38)
[2021-12-17] MEDS: ENOXAPARIN 40MG/0.4ML SYRINGE (J1650 PER 10MG) SC SCH (09:29)
[2021-12-17] MEDS: PANTOPRAZOLE 40MG VIAL IV SCH (09:30)
[2021-12-17] MEDS: propofoL 1,000 MG in IV 1 EA IV SCH ×3 (09:31→22:56)
[2021-12-17 10:30] LABS: APPEARANCE, URINE HAZY (CLEAR); BACTERIA, URINE AUTO NEGATIVE (NEGATIVE); BILIRUBIN, URINE AUTO NEGATIVE (NEGATIVE); BLOOD, URINE BLOOD 2+ (NEGATIVE); COLOR, URINE YELLOW (YELLOW); GLUCOSE, URINE (UA) AUTO NEGATIVE (NEGATIVE); KETONE, URINE AUTO TRACE mg/dL (NEGATIVE); LEUKOCYTE ESTERASE, URINE AUTO TRACE (NEGATIVE); MUCUS, URINE SMALL (NEGATIVE); NITRITE, URINE AUTO NEGATIVE (NEGATIVE); PROTEIN, URINE AUTO 2+ mg/dL (NEGATIVE); RBC, URINE AUTO 73 /HPF (0-3); SPECIFIC GRAVITY URINE AUTO 1.021 (1.002-1.035); SQUAMOUS EPITHELIAL CELL UR AU 1 /HPF (0-6); UROBILINOGEN, URINE AUTO 0.2 mg/dL (0.0-2.0); WBC, URINE AUTO 4 /HPF (0-3)
[2021-12-17] MEDS: ACETAMINOPHEN TAB 650MG DOSE (2X325MG) NG PRN ×2 (13:02→18:34)
[2021-12-17] MEDS ORDERED: cefTRIAXone SOD 1 GM in D5W MINI-BAG PLUS 50 ML IV SCH (16:00)
[2021-12-17] MEDS: LevoFLOXacin IV 750 MG in IV 1 EA IV SCH (18:29)
[2021-12-17] MEDS: MULTIVITAMINS/MINERALS THERAP 1 TAB NG SCH (18:29)
[2021-12-17] MEDS: MIDAZOLAM HCL 100 MG in D5W 80 ML IV SCH (18:32)
[2021-12-17] MEDS: THIAMINE 100 MG TAB NG SCH (18:34)
[2021-12-18] VITALS (14 sets, daily range): BP systolic 101–133; BP diastolic 57–83
[2021-12-18] MEDS: MIDAZOLAM INJ 2MG/2ML VIAL (J2250 PER 1MG) IV PRN ×2 (00:21→01:25)
[2021-12-18] MEDS: ACETAMINOPHEN TAB 650MG DOSE (2X325MG) NG PRN ×2 (01:25→20:15)
[2021-12-18 05:28] LABS: HEMATOCRIT 33.2 % (36.0-47.0); HEMOGLOBIN 10.6 g/dl (12.0-15.5); MEAN CORPUSCULAR HGB CONC 31.9 g/dl (32.0-36.5); MEAN CORPUSCULAR VOLUME 84.5 fl (80.0-96.0); PLATELET COUNT, AUTOMATED 209 10^3/uL (150-450); RED BLOOD COUNT 3.93 10^6/uL (4.00-5.40); WHITE BLOOD COUNT 10.2 10^3/uL (4.0-10.0)
[2021-12-18 05:56] LABS: ALBUMIN 2.6 GM/DL (3.2-5.2); ALT/SGPT 9 U/L (12-78); BILIRUBIN,TOTAL 0.4 MG/DL (0.2-1.0); BLOOD UREA NITROGEN 4 MG/DL (7-18); CALCIUM LEVEL 8.7 MG/DL (8.5-10.1); CARBON DIOXIDE LEVEL 24 MEQ/L (21-32); CHLORIDE LEVEL 109 MEQ/L (98-107); CREATININE FOR GFR 0.34 MG/DL (0.55-1.30); GLOMERULAR FILTRATION RATE > 60.0 (>58); GLUCOSE, FASTING 108 MG/DL (70-100); POTASSIUM SERUM 3.4 MEQ/L (3.5-5.1); SODIUM LEVEL 140 MEQ/L (136-145); TOTAL PROTEIN 6.2 GM/DL (6.4-8.2)
[2021-12-18] MEDS: propofoL 1,000 MG in IV 1 EA IV SCH (06:17)
[2021-12-18] MEDS ORDERED: POTASSIUM CHLORIDE 10% LIQ 20 MEQ/15 ML UDC NG ONE (08:15)
[2021-12-18] MEDS: PANTOPRAZOLE 40MG VIAL IV SCH (08:31)
[2021-12-18] MEDS: CHLORHEXIDINE GLUCONATE 0.12 % 15ML UDC (PERIDEX ORAL RINSE) MT SCH (08:31)
[2021-12-18] MEDS: MULTIVITAMINS/MINERALS THERAP 1 TAB NG SCH (08:33)
[2021-12-18] MEDS: THIAMINE 100 MG TAB NG SCH (08:33)
[2021-12-18] MEDS: ENOXAPARIN 40MG/0.4ML SYRINGE (J1650 PER 10MG) SC SCH (08:33)
[2021-12-18] MEDS ORDERED: BUPRENORPHINE/NALOXONE 8-2MG SUBLINGUAL TABLET(SUBOXONE) SL SCH (09:00)
[2021-12-18] MEDS ORDERED: diazePAM 2 MG TAB PO PRN (09:00)
[2021-12-18] MEDS: LR 1,000 ML IV SCH (09:32)
[2021-12-18] MEDS: GABAPENTIN 400MG CAP PO SCH ×3 (12:37→20:12)
[2021-12-18] MEDS: busPIRone 5 MG TAB PO SCH ×3 (12:38→20:12)
[2021-12-18] MEDS: BUPRENORPHINE/NALOXONE 8-2MG SUBLINGUAL TABLET(SUBOXONE) SL SCH ×2 (12:38→20:14)
[2021-12-18] MEDS: NICOTINE 21MG/24HR 1 EA TRANSDERMAL TD SCH (17:22)
[2021-12-18] MEDS: LevoFLOXacin IV 750 MG in IV 1 EA IV SCH (17:23)
[2021-12-18] MEDS ORDERED: PRAZOSIN 1 MG CAP PO SCH (21:00)
[2021-12-18] MEDS ORDERED: traZODone 100 MG TAB PO SCH (21:00)
[2021-12-19 06:00] VITALS: BP 96/60
[2021-12-19 06:01] LABS: HEMATOCRIT 31.5 % (36.0-47.0); HEMOGLOBIN 10.1 g/dl (12.0-15.5); MEAN CORPUSCULAR HGB CONC 32.1 g/dl (32.0-36.5); MEAN CORPUSCULAR VOLUME 84.2 fl (80.0-96.0); PLATELET COUNT, AUTOMATED 181 10^3/uL (150-450); RED BLOOD COUNT 3.74 10^6/uL (4.00-5.40); WHITE BLOOD COUNT 6.1 10^3/uL (4.0-10.0)
[2021-12-19 06:32] LABS: ALBUMIN 2.6 GM/DL (3.2-5.2); ALT/SGPT 11 U/L (12-78); BILIRUBIN,TOTAL 0.4 MG/DL (0.2-1.0); BLOOD UREA NITROGEN 4 MG/DL (7-18); CALCIUM LEVEL 9.1 MG/DL (8.5-10.1); CARBON DIOXIDE LEVEL 25 MEQ/L (21-32); CHLORIDE LEVEL 110 MEQ/L (98-107); CREATININE FOR GFR 0.38 MG/DL (0.55-1.30); GLOMERULAR FILTRATION RATE > 60.0 (>58); GLUCOSE, FASTING 112 MG/DL (70-100); POTASSIUM SERUM 3.5 MEQ/L (3.5-5.1); SODIUM LEVEL 143 MEQ/L (136-145); TOTAL PROTEIN 5.9 GM/DL (6.4-8.2)
[2021-12-19] MEDS ORDERED: LEVO750T13 PO (08:20)
[2021-12-19] MEDS ORDERED: THIAMINE 100 MG TAB PO SCH (09:00)
[2021-12-19] MEDS ORDERED: AMPHETAMINE/DEXTROAMPHETAMINE 5 MG *ER* CAPSULE (ADDERALL XR) PO SCH (09:00)
[2021-12-19] MEDS ORDERED: MULTIVITAMINS/MINERALS THERAP 1 TAB PO SCH (09:00)
[2021-12-19] MEDS ORDERED: ADDERALL 5 MG TAB PO SCH (09:00)
[2021-12-19] MEDS: ENOXAPARIN 40MG/0.4ML SYRINGE (J1650 PER 10MG) SC SCH (09:01)
[2021-12-19] MEDS: GABAPENTIN 400MG CAP PO SCH (09:02)
[2021-12-19] MEDS: BUPRENORPHINE/NALOXONE 8-2MG SUBLINGUAL TABLET(SUBOXONE) SL SCH (09:02)
[2021-12-19] MEDS: busPIRone 5 MG TAB PO SCH (09:02)
[2021-12-19] MEDS: NICOTINE 21MG/24HR 1 EA TRANSDERMAL TD SCH (09:03)
[2021-12-19] MEDS ORDERED: LevoFLOXacin 750 MG TABLET PO SCH (18:00)
== END 2021-12-19 11:41 | disposition home or self-care (01) | DRG 812 ==
LOC: EDBD 15:33 → M ED 15:33 → M ED INP 16:39 → ENRESERV 16:57 → M ICU 17:49 → M MSPAV 12-18 15:31
PROVIDERS: ADMIT Internal Medicine Critical Care Medicine; ATTEND Internal Medicine Nephrology
DX: T42.4X2A Poisoning by benzodiazepines, intentional self-harm, initial encounter (principal); J96.00 Acute respiratory failure, unspecified whether with hypoxia or hypercapnia; G93.41 Metabolic encephalopathy; J18.9 Pneumonia, unspecified organism; T43.292A Poisoning by other antidepressants, intentional self-harm, initial encounter; T43.8X2A Poisoning by other psychotropic drugs, intentional self-harm, initial encounter; F41.1 Generalized anxiety disorder; F43.10 Post-traumatic stress disorder, unspecified; E11.9 Type 2 diabetes mellitus without complications; F17.200 Nicotine dependence, unspecified, uncomplicated; F10.129 Alcohol abuse with intoxication, unspecified; F32.A Depression, unspecified; E66.9 Obesity, unspecified; Z79.899 Other long term (current) drug therapy; Z88.0 Allergy status to penicillin; S61.512A Laceration without foreign body of left wrist, initial encounter; X78.9XXA Intentional self-harm by unspecified sharp object, initial encounter; Y92.009 Unspecified place in unspecified non-institutional (private) residence as the place of occurrence of the external cause; F12.90 Cannabis use, unspecified, uncomplicated; F11.90 Opioid use, unspecified, uncomplicated

== ENCOUNTER → 2022-12-18 | Outpatient (REF) | payer MEDICAID ==
[~2022-12-18] MED LIST changes: +ADDE20TA PO; +BUSP15TA47 PO; +COMMENTS; +DIAZ2TAB PO; +LEVO1TAB40 PO; +OLAN2.5T25 PO; +PRAZ1CAP PO; +TRAZ-257 PO
[2022-12-19 12:43] LABS: AMORPHOUS SEDIMENT MODERATE (NEGATIVE); APPEARANCE, URINE TURBID (CLEAR); BACTERIA, URINE AUTO NEGATIVE (NEGATIVE); BILIRUBIN, URINE AUTO 1+ (NEGATIVE); BLOOD, URINE BLOOD NEGATIVE (NEGATIVE); COLOR, URINE RED (YELLOW); GLUCOSE, URINE (UA) AUTO NEGATIVE (NEGATIVE); KETONE, URINE AUTO TRACE mg/dL (NEGATIVE); LEUKOCYTE ESTERASE, URINE AUTO TRACE (NEGATIVE); MUCUS, URINE SMALL (NEGATIVE); NITRITE, URINE AUTO NEGATIVE (NEGATIVE); PROTEIN, URINE AUTO 1+ mg/dL (NEGATIVE); RBC, URINE AUTO 0 /HPF (0-3); SPECIFIC GRAVITY URINE AUTO 1.033 (1.002-1.035); SQUAMOUS EPITHELIAL CELL UR AU 0 /HPF (0-6); WBC, URINE AUTO 3 /HPF (0-3)
[2022-12-19 13:33] LABS: CREATININE, URINE 298.9 MG/DL
[2022-12-19 19:44] LABS: GC DNA AMPLIFICATION NEGATIVE (NEGATIVE)
== END ==
LOC: M LAB REF 11:59
PROVIDERS: ATTEND Nurse Practitioner Family
DX: R10.30 Lower abdominal pain, unspecified (principal); E11.65 Type 2 diabetes mellitus with hyperglycemia; Z11.3 Encounter for screening for infections with a predominantly sexual mode of transmission

== ENCOUNTER 2022-12-20 20:10 | Inpatient (IN) | payer MEDICAID ==
[~2022-12-20] VITALS: Ht 167.6 cm; Wt 75.7 kg
[~2022-12-20 20:10] MED LIST changes: -ADDE20TA PO; -OLAN2.5T25 PO
[2022-12-20] MEDS ORDERED: NALOXONE 2MG/2ML SYRINGE As Ordered ONE ×3 (20:21→20:26)
[2022-12-20] MEDS ORDERED: PROPOFOL 1,000 MG/100 ML VIAL As Ordered ONE (20:48)
[2022-12-20] MEDS ORDERED: NALOXONE 2MG/2ML SYRINGE IV ONE (20:50)
[2022-12-20] MEDS ORDERED: ETOMIDATE INJ 20MG/10ML VIAL IV ONE (20:55)
[2022-12-20] MEDS ORDERED: SUCCINYLCHOLINE INJ 200MG/10ML VIAL IV ONE (20:55)
[2022-12-20] MEDS ORDERED: propofoL 1,000 MG in IV 1 EA IV SCH (20:55)
[2022-12-20] MEDS ORDERED: NALOXONE HCL INJ 4 MG in D5W 496 ML IV SCH (21:00)
[2022-12-20] MEDS ORDERED: NALOXONE 2MG/2ML SYRINGE IM ONE (21:00)
[2022-12-20 21:08] LABS: BASO # 0.1 10^3/uL (0.0-0.2); BASO % 0.7 % (0.0-1.0); EOS # 0.2 10^3/uL (0.0-0.5); EOS % 1.9 % (0.0-3.0); HEMOGLOBIN 9.9 g/dl (12.0-15.5); LYMPH # 2.7 10^3/uL (1.5-5.0); LYMPH % 31.4 % (24.0-44.0); MEAN CORPUSCULAR HEMOGLOBIN 24.1 pg (27.0-33.0); MEAN CORPUSCULAR HGB CONC 30.9 g/dl (32.0-36.5); MEAN CORPUSCULAR VOLUME 77.9 fl (80.0-96.0); MONO # 0.7 10^3/uL (0.0-0.8); MONO % 7.6 % (2.0-8.0); NEUTROPHILS % 58.2 % (36.0-66.0); PLATELET COUNT, AUTOMATED 260 10^3/uL (150-450); RED BLOOD COUNT 4.11 10^6/uL (4.00-5.40); WHITE BLOOD COUNT 8.6 10^3/uL (4.0-10.0)
[2022-12-20 21:15] LABS: ETHYL ALCOHOL (ETHANOL) < 0.003 % (0.000-0.010)
[2022-12-20 21:16] LABS: ACETAMINOPHEN LEVEL < 2.0 UG/ML (10.0-20.0); ALBUMIN 3.5 G/DL (3.2-5.2); ALKALINE PHOSPHATASE 88 U/L (46-116); ALT/SGPT 14 U/L (7.0-40); AST/SGOT 18 U/L (<34); BILIRUBIN,DIRECT < 0.1 MG/DL (<0.4); BILIRUBIN,TOTAL 0.2 MG/DL (0.3-1.2); BLOOD UREA NITROGEN 11 MG/DL (9-23); CALCIUM LEVEL 8.6 MG/DL (8.5-10.1); CARBON DIOXIDE LEVEL 30 MMOL/L (20-31); CHLORIDE LEVEL 104 MMOL/L (98-107); CPK CREATINE PHOSPHOKINASE 62 U/L (34-145); CREATININE FOR GFR 0.63 MG/DL (0.55-1.30); GLOMERULAR FILTRATION RATE > 60.0 (>58); GLUCOSE, FASTING 107 MG/DL (60-100); POTASSIUM SERUM 3.5 MMOL/L (3.5-5.1); SALICYLATE LEVEL < 3.0 MG/DL (<30); SODIUM LEVEL 139 MMOL/L (136-145); TOTAL PROTEIN 6.4 G/DL (5.7-8.2)
[2022-12-20 21:19] LABS: THYROID STIMULATING HORMONE 0.719 uIU/ML (0.55-4.78)
[2022-12-20 21:31] LABS: ABG BASE EXCESS -0.7 (-2.0-2.0); ABG HCO3 24.5 MMOL/L (22.0-26.0); ABG O2 SATURATION 99.2 % (95.0-99.0); ABG PARTIAL PRESSURE CO2 42.3 mmHg (35.0-45.0); ABG PARTIAL PRESSURE O2 228.7 mmHg (75.0-100.0); ABG TOTAL CO2 25.8 MMOL/L (22.0-29.0)
[2022-12-20 21:32] LABS: OSMOLALITY SERUM 283 MOSM/KG (275-295)
[2022-12-20 22:02] LABS: BARBITURATES URINE NEGATIVE (NEGATIVE); COCAINE METABOLITE URINE NEGATIVE (NEGATIVE); METHADONE URINE NEGATIVE (NEGATIVE); OPIATES URINE NEGATIVE (NEGATIVE); PHENCYCLIDINE URINE NEGATIVE (NEGATIVE)
[2022-12-20 22:09] LABS: AMPHETAMINES LEVEL URINE POSITIVE (NEGATIVE); BENZODIAZEPINES URINE POSITIVE (NEGATIVE); CANNABINOIDS URINE POSITIVE (NEGATIVE)
[2022-12-20] MEDS ORDERED: OLAN2.5T25 PO (22:26)
[2022-12-20] MEDS ORDERED: ADDE20TA PO (22:26)
[2022-12-20] MEDS ORDERED: HOME MED LIST COMPLETE! XX SCH (22:30)
[2022-12-21] VITALS (30 sets, daily range): BP systolic 104–154; BP diastolic 58–88
[2022-12-21 00:23] LABS: ABG BASE EXCESS 2.2 (-2.0-2.0); ABG O2 SATURATION 99.1 % (95.0-99.0); ABG PARTIAL PRESSURE CO2 37.5 mmHg (35.0-45.0); ABG PARTIAL PRESSURE O2 194.3 mmHg (75.0-100.0); ABG STANDARD HCO3 26.4 MMOL/L. (22.0-26.0); ABG TOTAL CO2 27.2 MMOL/L (22.0-29.0); ABG pH (ARTERIAL) 7.459 UNITS (7.350-7.450)
[2022-12-21] MEDS: propofoL 1,000 MG in IV 1 EA IV SCH ×6 (00:45→22:47)
[2022-12-21] MEDS ORDERED: NS 1,000 ML IV SCH (01:15)
[2022-12-21] MEDS ORDERED: VANCOMYCIN HCL IV ONE (01:25)
[2022-12-21] MEDS ORDERED: FLUID PLACE HOLDER IV ONE (01:25)
[2022-12-21] MEDS: LevoFLOXacin IV 750 MG in IV 1 EA IV SCH (01:44)
[2022-12-21] MEDS: metroNIDAZOLE 500 MG in IV 1 EA IV SCH ×3 (03:20→18:03)
[2022-12-21] MEDS ORDERED: VANCOMYCIN HCL 750 MG, VIAL MATE ADAPTER 1 EACH in D5W 250 ML IV ONE ×2 (04:00→05:00)
[2022-12-21 05:38] LABS: HEMATOCRIT 32.7 % (36.0-47.0); HEMOGLOBIN 9.8 g/dl (12.0-15.5)
[2022-12-21 06:06] LABS: ALBUMIN 3.2 G/DL (3.2-5.2); ALKALINE PHOSPHATASE 75 U/L (46-116); ALT/SGPT 10 U/L (7.0-40); AST/SGOT 19 U/L (<34); BILIRUBIN,TOTAL 0.2 MG/DL (0.3-1.2); BLOOD UREA NITROGEN 10 MG/DL (9-23); CALCIUM LEVEL 8.3 MG/DL (8.5-10.1); CARBON DIOXIDE LEVEL 26 MMOL/L (20-31); CHLORIDE LEVEL 109 MMOL/L (98-107); CREATININE FOR GFR 0.46 MG/DL (0.55-1.30); GLOMERULAR FILTRATION RATE > 60.0 (>58); GLUCOSE, FASTING 113 MG/DL (60-100); MAGNESIUM LEVEL 1.8 MG/DL (1.8-2.4); PHOSPHORUS LEVEL 2.8 MG/DL (2.5-4.9); POTASSIUM SERUM 3.4 MMOL/L (3.5-5.1); SODIUM LEVEL 141 MMOL/L (136-145); TOTAL PROTEIN 5.9 G/DL (5.7-8.2)
[2022-12-21 06:19] LABS: ABG BASE EXCESS 0.1 (-2.0-2.0); ABG HCO3 23.7 MMOL/L (22.0-26.0); ABG O2 SATURATION 98.3 % (95.0-99.0); ABG PARTIAL PRESSURE CO2 34.2 mmHg (35.0-45.0); ABG STANDARD HCO3 24.6 MMOL/L. (22.0-26.0); ABG TOTAL CO2 24.7 MMOL/L (22.0-29.0); ABG pH (ARTERIAL) 7.458 UNITS (7.350-7.450)
[2022-12-21] MEDS ORDERED: KCL 10MEQ/100ML SWI (KRUN) 10 MEQ in IV 1 EA IV ONE (07:00)
[2022-12-21] MEDS: ALBUTEROL SULFATE 2.5MG/0.5ML INH NEB SOLN NEB SCH ×4 (07:48→19:00)
[2022-12-21] MEDS: ENOXAPARIN 40MG/0.4ML SYRINGE (J1650 PER 10MG) SC SCH (09:09)
[2022-12-21] MEDS: PANTOPRAZOLE 40MG VIAL IV SCH (09:09)
[2022-12-21] MEDS: CHLORHEXIDINE GLUCONATE 0.12 % 15ML UDC (PERIDEX ORAL RINSE) MT SCH ×2 (09:09→21:58)
[2022-12-21] MEDS ORDERED: fentaNYL 100 MCG/2 ML INJECTION IV PRN (09:15)
[2022-12-21] MEDS: VANCOMYCIN HCL 1,000 MG, VIAL MATE ADAPTER 1 EACH in D5W 250 ML IV SCH ×2 (11:42→19:40)
[2022-12-21] MEDS ORDERED: MULTIVITAMIN -ADULT INJECTION 10 ML, THIAMINE INJection 100 MG, FOLIC ACID 1 MG in NS 1... IV ONE (15:00)
[2022-12-22] VITALS (17 sets, daily range): BP systolic 101–144; BP diastolic 56–82
[2022-12-22] MEDS: D5W/0.9% SODIUM CHLORIDE 1,000 ML IV SCH ×2 (00:53→11:04)
[2022-12-22] MEDS: LevoFLOXacin IV 750 MG in IV 1 EA IV SCH (01:55)
[2022-12-22] MEDS: propofoL 1,000 MG in IV 1 EA IV SCH ×3 (02:00→09:32)
[2022-12-22] MEDS: metroNIDAZOLE 500 MG in IV 1 EA IV SCH ×2 (03:44→11:03)
[2022-12-22] MEDS: VANCOMYCIN HCL 1,000 MG, VIAL MATE ADAPTER 1 EACH in D5W 250 ML IV SCH ×2 (05:00→12:39)
[2022-12-22 05:14] LABS: HEMATOCRIT 28.9 % (36.0-47.0); HEMOGLOBIN 8.8 g/dl (12.0-15.5); MEAN CORPUSCULAR HEMOGLOBIN 23.7 pg (27.0-33.0); MEAN CORPUSCULAR HGB CONC 30.4 g/dl (32.0-36.5); MEAN CORPUSCULAR VOLUME 77.7 fl (80.0-96.0); PLATELET COUNT, AUTOMATED 184 10^3/uL (150-450); RED BLOOD COUNT 3.72 10^6/uL (4.00-5.40); WHITE BLOOD COUNT 8.1 10^3/uL (4.0-10.0)
[2022-12-22 05:37] LABS: ABG BASE EXCESS -0.6 (-2.0-2.0); ABG HCO3 23.8 MMOL/L (22.0-26.0); ABG PARTIAL PRESSURE CO2 37.8 mmHg (35.0-45.0); ABG PARTIAL PRESSURE O2 87.1 mmHg (75.0-100.0); ABG pH (ARTERIAL) 7.417 UNITS (7.350-7.450)
[2022-12-22 05:38] LABS: BLOOD UREA NITROGEN 6 MG/DL (9-23); CALCIUM LEVEL 7.8 MG/DL (8.5-10.1); CARBON DIOXIDE LEVEL 26 MMOL/L (20-31); CHLORIDE LEVEL 112 MMOL/L (98-107); CREATININE FOR GFR 0.48 MG/DL (0.55-1.30); GLOMERULAR FILTRATION RATE > 60.0 (>58); GLUCOSE, FASTING 121 MG/DL (60-100); POTASSIUM SERUM 3.1 MMOL/L (3.5-5.1); SODIUM LEVEL 140 MMOL/L (136-145)
[2022-12-22] MEDS: KCL 10MEQ/100ML SWI (KRUN) 10 MEQ in IV 1 EA IV SCH ×4 (06:34→09:33)
[2022-12-22] MEDS: ALBUTEROL SULFATE 2.5MG/0.5ML INH NEB SOLN NEB SCH ×3 (07:07→15:45)
[2022-12-22] MEDS: CHLORHEXIDINE GLUCONATE 0.12 % 15ML UDC (PERIDEX ORAL RINSE) MT SCH (08:35)
[2022-12-22] MEDS: PANTOPRAZOLE 40MG VIAL IV SCH (08:35)
[2022-12-22] MEDS: ENOXAPARIN 40MG/0.4ML SYRINGE (J1650 PER 10MG) SC SCH (08:35)
[2022-12-22] MEDS ORDERED: NICOTINE 21MG/24HR 1 EA TRANSDERMAL TD SCH (09:00)
[2022-12-23] MEDS ORDERED: LevoFLOXacin 750 MG TABLET PO SCH (06:00)
== END 2022-12-22 16:45 | disposition left against medical advice (07) | DRG 812 ==
LOC: M ED 20:10 → EDBD 20:10 → M ED INP 22:45 → M ICU 12-21 00:50
PROVIDERS: ADMIT Internal Medicine; ATTEND Student in an Organized Health Care Education/Training Program
PROC: 5A1945Z Respiratory Ventilation, 24-96 Consecutive Hours (ICD-10-PCS; principal; 2022-12-20)
DX: T50.901A Poisoning by unspecified drugs, medicaments and biological substances, accidental (unintentional), initial encounter (principal); J96.01 Acute respiratory failure with hypoxia; J69.0 Pneumonitis due to inhalation of food and vomit; E87.6 Hypokalemia; F11.20 Opioid dependence, uncomplicated; F13.20 Sedative, hypnotic or anxiolytic dependence, uncomplicated; Z79.899 Other long term (current) drug therapy

== ENCOUNTER → 2023-01-20 | Outpatient (CLI) | payer MEDICAID, OTHER ==
[~2023-01-20] MED LIST changes: +ADDE20TA PO; +OLAN2.5T25 PO
== END ==
LOC: M CARPUL 09:23
PROVIDERS: ATTEND Nurse Practitioner Family
DX: R01.1 Cardiac murmur, unspecified (principal)

== ENCOUNTER 2024-10-02 15:47 | Emergency (ER) | payer OTHER ==
[~2024-10-02] VITALS: Ht 165.1 cm; Wt 82.9 kg
[~2024-10-02 15:47] MED LIST changes: +GABA-1172 PO; -GABA-282 PO; -GABA-283 PO; +GABA-284 PO; -OLAN2.5T25 PO; +OLAN2.5T53 PO
[2024-10-02] MEDS: ALPRAZolam 0.5 MG TAB PO ONE (18:38)
[2024-10-02 19:13] LABS: KETONE, URINE AUTO RFX NEGATIVE (NEGATIVE); LEUKOCYTE ESTERASE UR AUTO RFX 1+ (NEGATIVE); NITRITE, URINE AUTO RFX NEGATIVE (NEGATIVE); RBC, URINE AUTO RFX 1 /HPF (0-3); SQUAM EPITHELIAL CELL UR AURFX 0 /HPF (0-6); WBC, URINE AUTO RFX 10 /HPF (0-3)
[2024-10-02 19:14] LABS: BASO # 0.1 10^3/uL (0.0-0.2); BASO % 0.6 % (0.0-1.0); EOS # 0.2 10^3/uL (0.0-0.5); HEMATOCRIT 36.5 % (36.0-47.0); HEMOGLOBIN 11.3 g/dl (12.0-15.5); LYMPH # 2.1 10^3/uL (1.5-5.0); MEAN CORPUSCULAR HEMOGLOBIN 25.2 pg (27.0-33.0); MEAN CORPUSCULAR VOLUME 81.3 fl (80.0-96.0); MONO # 0.6 10^3/uL (0.0-0.8); MONO % 7.6 % (2.0-8.0); NEUTROPHILS # 5.3 10^3/uL (1.5-8.5); NEUTROPHILS % 64.4 % (36.0-66.0); PLATELET COUNT, AUTOMATED 278 10^3/uL (150-450); RED BLOOD COUNT 4.49 10^6/uL (4.00-5.40); WHITE BLOOD COUNT 8.2 10^3/uL (4.0-10.0)
[2024-10-02 19:20] LABS: ERYTHROCYTE SEDIMENTATION RATE 65 mm/hr (0-20)
[2024-10-02 19:42] LABS: BARBITURATES URINE NEGATIVE (NEGATIVE); COCAINE METABOLITE URINE NEGATIVE (NEGATIVE); METHADONE URINE NEGATIVE (NEGATIVE); OPIATES URINE NEGATIVE (NEGATIVE); PHENCYCLIDINE URINE NEGATIVE (NEGATIVE)
[2024-10-02 19:46] LABS: C REACTIVE PROTEIN QUANTITATIV < 0.50 MG/DL (<1.0)
[2024-10-02 19:47] LABS: PROLACTIN 14.98 NG/ML
[2024-10-02 19:57] LABS: AMPHETAMINES LEVEL URINE POSITIVE (NEGATIVE); BENZODIAZEPINES URINE POSITIVE (NEGATIVE); CANNABINOIDS URINE POSITIVE (NEGATIVE)
[2024-10-02 20:12] LABS: HIV 1&2 SCREEN NEGATIVE (NEGATIVE)
[2024-10-02 20:13] LABS: ALBUMIN 3.5 G/DL (3.2-5.2); ALKALINE PHOSPHATASE 105 U/L (35-104); ALT/SGPT 11 U/L (7.0-40); AST/SGOT 12 U/L (<34); BILIRUBIN,DIRECT 0.1 MG/DL (<0.4); BILIRUBIN,TOTAL 0.3 MG/DL (0.3-1.2); BLOOD UREA NITROGEN < 5 MG/DL (9-23); CALCIUM LEVEL 9.3 MG/DL (8.5-10.1); CARBON DIOXIDE LEVEL 26 MMOL/L (20-31); CHLORIDE LEVEL 106 MMOL/L (98-107); CREATININE FOR GFR 0.47 MG/DL (0.55-1.30); GLOMERULAR FILTRATION RATE > 60.0 (>58); GLUCOSE, FASTING 100 MG/DL (60-100); POTASSIUM SERUM 3.9 MMOL/L (3.5-5.1); SODIUM LEVEL 139 MMOL/L (136-145); TOTAL PROTEIN 7.8 G/DL (5.7-8.2)
[2024-10-02 20:17] LABS: Trichomonas vaginalis (AMP) NOT DETECTED (NEGATIVE)
[2024-10-02 20:40] LABS: PROCALCITONIN <0.04 ng/ml
[2024-10-02 20:41] LABS: GC DNA AMPLIFICATION NEGATIVE (NEGATIVE)
[2024-10-02] MEDS: methylPREDNISolone 125MG 2ML VIAL IV ONE (21:07)
[2024-10-02] MEDS: metroNIDAZOLE (FLAGYL) 500MG TABLET PO ONE (21:08)
[2024-10-02] MEDS: DOXYCYCLINE HYCLATE 100MG TABLET PO ONE (21:08)
[2024-10-02] MEDS ORDERED: METR-265 PO (22:24)
[2024-10-02] MEDS ORDERED: PRED20TA PO (22:24)
[2024-10-02] MEDS ORDERED: DOXY-440 PO (22:24)
[2024-10-02] MEDS ORDERED: CLOT1CRE56 TOP (22:33)
[2024-10-02 22:48] VITALS: BP 156/65; TEMP 97; O2SAT 98
[2024-10-03] MEDS ORDERED: AMPHETAMINE/DEXTROAMPHETAMINE 5 MG *ER* CAPSULE (ADDERALL XR) PO SCH (09:00)
== END 2024-10-02 23:08 | disposition home or self-care (01) ==
LOC: M ED 15:47
DX: T78.40XA Allergy, unspecified, initial encounter (principal); L20.9 Atopic dermatitis, unspecified; B37.2 Candidiasis of skin and nail; S61.451A Open bite of right hand, initial encounter; S61.452A Open bite of left hand, initial encounter; S61.551A Open bite of right wrist, initial encounter; S61.552A Open bite of left wrist, initial encounter; S21.051A Open bite of right breast, initial encounter; W55.01XA Bitten by cat, initial encounter; Y92.017 Garden or yard in single-family (private) house as the place of occurrence of the external cause; Y93.89 Activity, other specified; Y99.9 Unspecified external cause status; F19.10 Other psychoactive substance abuse, uncomplicated; K21.9 Gastro-esophageal reflux disease without esophagitis; Z88.0 Allergy status to penicillin; Z79.899 Other long term (current) drug therapy
CPT/HCPCS: 80048; 80076; 80307; 81001; 84145; 84146; 85025; 85652; 86140; 86780; 87040; 87088; 87186; 87389; 87661; 87810; 87850; 96374; 99285; J2919

== ENCOUNTER 2024-10-04 17:03 | Emergency (ER) | payer OTHER ==
[~2024-10-04] VITALS: Ht 165.1 cm; Wt 83.5 kg
[~2024-10-04 17:03] MED LIST changes: +CLOT1CRE56 TOP; +DOXY-440 PO; +METR-265 PO; +PRED20TA PO
[2024-10-04 17:40] VITALS: BP 123/78; TEMP 96.9; O2SAT 99
[2024-10-04] MEDS ORDERED: RABIES IMMUNE GLOBULIN 1500 INTERNATIONAL UNIT/5ML VIAL IM.IMMUN ONE (17:40)
[2024-10-04] MEDS: RABIES VACCINE HUMAN 2.5 INTERNATIONAL UNITS/ML VIAL (IMOVAX) IM ONE (17:58)
[2024-10-04] MEDS: BOOSTRIX VACCINE (TETANUS/DIPHTH/ACEL. PERTUSSIS) 0.5ML SYR IM ONE (17:59)
[2024-10-04] MEDS: RABIES IMMUNE GLOBULIN 1500 INTERNATIONAL UNIT/5ML VIAL IM.IMMUN ONE (18:00)
[2024-10-04] MEDS: RABIES IMMUNE GLOBULIN 300 INTERNATIONAL UNITS/1ML VIAL IM.IMMUN ONE (18:02)
== END 2024-10-04 19:43 | disposition home or self-care (01) ==
LOC: M ED 17:03
DX: Z23 Encounter for immunization (principal); Z20.3 Contact with and (suspected) exposure to rabies; Z88.0 Allergy status to penicillin

== ENCOUNTER 2024-10-07 15:23 | Emergency (ER) | payer OTHER ==
[~2024-10-07] VITALS: Ht 165.1 cm; Wt 86.1 kg
[2024-10-07 15:45] VITALS: BP 150/70; TEMP 97; O2SAT 95
[2024-10-07] MEDS ORDERED: RABIES VACCINE HUMAN 2.5 INTERNATIONAL UNITS/ML VIAL (IMOVAX) IM ONE (17:45)
[2024-10-07] MEDS ORDERED: CLOT1CRE56 TOP (22:04)
== END 2024-10-07 18:00 | disposition left against medical advice (07) ==
LOC: M ED 15:23
DX: Z53.21 Procedure and treatment not carried out due to patient leaving prior to being seen by health care provider (principal)

== ENCOUNTER 2024-10-07 19:47 | Emergency (ER) | payer OTHER ==
[~2024-10-07] VITALS: Ht 165.1 cm; Wt 86.1 kg
[2024-10-07] MEDS: RABIES VACCINE HUMAN 2.5 INTERNATIONAL UNITS/ML VIAL (IMOVAX) IM ONE (21:54)
[2024-10-07] MEDS ORDERED: CLOT1CRE56 TOP (22:04)
[2024-10-07 22:24] VITALS: BP 131/78; TEMP 97.5; O2SAT 98
== END 2024-10-07 22:25 | disposition home or self-care (01) ==
LOC: M ED 19:47
DX: Z29.14 Encounter for prophylactic rabies immune globulin (principal); Z20.3 Contact with and (suspected) exposure to rabies; W55.01XA Bitten by cat, initial encounter; F17.200 Nicotine dependence, unspecified, uncomplicated; F19.10 Other psychoactive substance abuse, uncomplicated; Z88.0 Allergy status to penicillin; Z79.899 Other long term (current) drug therapy; Z79.52 Long term (current) use of systemic steroids

== ENCOUNTER 2024-10-11 20:14 | Emergency (ER) | payer OTHER ==
[~2024-10-11] VITALS: Ht 165.1 cm; Wt 87.9 kg
[2024-10-11] MEDS: RABIES VACCINE HUMAN 2.5 INTERNATIONAL UNITS/ML VIAL (IMOVAX) IM ONE (21:16)
[2024-10-11] MEDS: predniSONE 10MG TAB PO ONE (21:50)
[2024-10-11 22:00] VITALS: BP 125/72; TEMP 97.3; O2SAT 98
== END 2024-10-11 22:01 | disposition home or self-care (01) ==
LOC: M ED 20:14
DX: Z29.14 Encounter for prophylactic rabies immune globulin (principal); Z20.3 Contact with and (suspected) exposure to rabies; F32.9 Major depressive disorder, single episode, unspecified; F90.9 Attention-deficit hyperactivity disorder, unspecified type; Z88.0 Allergy status to penicillin; Z86.79 Personal history of other diseases of the circulatory system; Z79.899 Other long term (current) drug therapy; Z79.52 Long term (current) use of systemic steroids
CPT/HCPCS: 90471; 90675; 99283; J7512

== ENCOUNTER 2025-02-21 16:29 | Emergency (ER) | payer OTHER ==
[~2025-02-21] VITALS: Ht 165.1 cm; Wt 83.2 kg
[~2025-02-21 16:29] MED LIST changes: +ALPR1TAB3 PO; +BENA25CA4 PO; +CLOT15CR4 TOP; +ONDA-83 PO; +PROB250C PO; +ZOLO100T PO
[2025-02-21] MEDS: LIDOCAINE 1% MDV 20 ML VIAL SC ONE (18:00)
[2025-02-21 19:51] VITALS: BP 135/69; TEMP 97.1; O2SAT 98
== END 2025-02-21 19:54 | disposition home or self-care (01) ==
LOC: EDBD 16:29 → M ED 16:29
DX: S61.213A Laceration without foreign body of left middle finger without damage to nail, initial encounter (principal); W26.8XXA Contact with other sharp object(s), not elsewhere classified, initial encounter; F31.9 Bipolar disorder, unspecified; F60.3 Borderline personality disorder; F17.200 Nicotine dependence, unspecified, uncomplicated; F12.10 Cannabis abuse, uncomplicated; Z88.0 Allergy status to penicillin; Z79.899 Other long term (current) drug therapy; Z79.83 Long term (current) use of bisphosphonates; Y99.9 Unspecified external cause status; Y93.89 Activity, other specified